=== PATIENT | male | born 1935 | race Caucasian/White ===

== ENCOUNTER 2019-01-12 04:29 | Emergency (ER) | payer MEDICARE, OTHER ==
--- NOTE | 2019-01-12 04:58 | ER Document Report ---
ED General - General Stated Complaint: BLOOD PRESSURE PROBLEM Time Seen by Provider: 01/12/19 04:42 Notes: Patient is an 83-year-old male that comes emergency department from by [facility] for chief complaint of elevated blood pressure reading. Patient states he awoke tonight with a sensation of some bleeding in the back of his throat, he spit out a little bit of blood, then the bleeding stopped. He states he decided to check his blood pressure medication because of this, found that it was 190s systolic. He states his blood pressure is very labile, sometimes it is very elevated, sometimes is borderline low. He is on metoprolol, amlodipine, sotalol (hx of atrial flutter), and also Savaysa blood thinner. He does do nasal rinses. Patient denies ever having headache, he denies any chest pain or dizziness, focal numbness or weakness, inability to urinate. He denies any current complaints. TRAVEL OUTSIDE OF THE [place] IN LAST 30 DAYS: No - Related Data Allergies/Adverse Reactions: No Known Allergies Allergy (Unverified 10/06/14 18:09) Past Medical History - General Information source: Patient - Social History Smoking Status: Never Smoker Chew tobacco use (# tins/day): No Frequency of alcohol use: None Drug Abuse: None Lives with: Family Family History: Reviewed & Not Pertinent Patient has suicidal ideation: No Patient has homicidal ideation: No - Past Medical History Cardiac Medical History: Reports: Hx Coronary Artery Disease, Hx Hypercholesterolemia, Hx Hypertension Pulmonary Medical History: Reports: Hx Asthma Renal/ Medical History: Denies: Hx Peritoneal Dialysis Past Surgical History: Reports: Hx Cardiac Surgery - bipass Review of Systems - Review of Systems Constitutional: See HPI EENT: See HPI Cardiovascular: No symptoms reported Respiratory: No symptoms reported Gastrointestinal: No symptoms reported Genitourinary: No symptoms reported Male Genitourinary: No symptoms reported Musculoskeletal: No symptoms reported Skin: No symptoms reported Hematologic/Lymphatic: No symptoms reported Neurological/Psychological: No symptoms reported Physical Exam - Vital signs Vitals: Temp 98.8 F 01/12/19 04:42 - Notes Notes: GENERAL: Alert, interacts well. No acute distress. HEAD: Normocephalic, atraumatic. EYES: Pupils equal, round, and reactive to light. Extraocular movements intact. ENT: Oral mucosa moist, tongue midline. Oropharynx unremarkable. Airway patent. Nares patent, no nasal septal hematoma, TM's intact. NECK: Full range of motion. Supple. Trachea midline. LUNGS: Clear to auscultation bilaterally, no wheezes, rales, or rhonchi. No respiratory distress. HEART: Regular rate and rhythm. No murmur ABDOMEN: Soft, non-tender. Non-distended. Bowel sounds present in all 4 quadrants. GENITOURINARY: Deferred EXTREMITIES: Moves all 4 extremities spontaneously. No edema, normal radial and dorsalis pedis pulses bilaterally. No cyanosis. BACK: no cervical, thoracic, lumbar midline tenderness. No saddle anesthesia, normal distal neurovascular exam. NEUROLOGICAL: Alert and oriented x3. Normal speech. [cranial nerves II through X II grossly intact]. PSYCH: Normal affect, normal mood. SKIN: Warm, dry, normal turgor. No rashes or lesions noted. Course - Re-evaluation Re-evalutation: No bleeding no bleeding noted from the nose, mouth, eyes. Patient also notes this has stopped. No headache, no chest pain, no other complaints. He is hypertensive but not severely here. He is medicated for this. He has no current complaints. He has a normal neurological exam. I did discuss with Dr. García, he does recommend CBC and chemistry for basic evaluation and if this is unremarkable patient can be discharged if he is still asymptomatic. Patient very agreeable with this, family agreeable with this as well. CBC, chemistry unremarkable. On reevaluation patient has no headache, no rebleeding, no other symptoms reported. Requesting to leave. Stable at time of discharge. - Vital Signs Vital signs: Temp Pulse Resp BP Pulse Ox 98.8 F 17 162/87 H 97 01/12/19 04:42 01/12/19 06:01 01/12/19 06:01 01/12/19 06:01 - Laboratory Result Diagrams: 01/12/19 05:10 01/12/19 05:10 Laboratory results interpreted by me: 01/12/19 05:10 RBC 4.25 L Monocytes % 14.7 H Discharge - Discharge Clinical Impression: Elevated blood pressure reading, Bleeding from mouth Condition: Stable Disposition: HOME, SELF-CARE Additional Instructions: Your evaluation and workup did not show any concerning findings at this time. There is no current bleeding in your mouth. I do recommend that you avoid the nasal rinse for the next couple of days. Putting moisturizer such as Vaseline or bacitracin in the nose using finger or Q-tip can help with this as well. Your blood pressure was elevated tonight. I recommend that you record blood pressures in a journal, 2-3 pressures a day, and then take the general to your primary care for additional management of your hypertension. Return for any concerning symptoms including return of bleeding, severe headache, chest pain, or any other concerning or worsening symptoms.
[2019-01-12 05:26] LABS: ABSOLUTE EOSINOPHILS # (AUTO) 0.3 10^3/uL (0.0-0.6); ABSOLUTE LYMPHOCYTES (AUTO) 1.7 10^3/uL (0.5-4.7); ABSOLUTE MONOCYTES (AUTO) 1.1 10^3/uL (0.1-1.4); ABSOLUTE NEUT (AUTO) 4.2 10^3/uL (1.7-8.2); BASOPHILS % (AUTO) 0.6 % (0-2); EOSINOPHILS % (AUTO) 4.3 % (0-6); HEMATOCRIT 40.6 % (37.9-51.0); HEMOGLOBIN 14.2 g/dL (13.5-17.0); MEAN CORPUSCULAR HEMOGLOBIN 33.4 pg (27.0-33.4); MEAN CORPUSCULAR HGB CONC 34.9 g/dL (32.0-36.0); MEAN CORPUSCULAR VOLUME 96 fl (80-97); MONOCYTES % (AUTO) 14.7 % (3-13); PLATELET COUNT 167 10^3/uL (150-450); RED BLOOD COUNT 4.25 10^6/uL (4.35-5.55); RED CELL DISTRIBUTION WIDTH 13.6 % (11.5-14.0); SEGMENTED NEUTROPHILS % (AUTO) 57.4 % (42-78); TOTAL CELLS COUNTED % (AUTO) 100 %; WHITE BLOOD COUNT 7.4 10^3/uL (4.0-10.5)
[2019-01-12 05:36] LABS: ANION GAP 8 (5-19); BLOOD UREA NITROGEN 15 mg/dL (7-20); CALCIUM 9.3 mg/dL (8.4-10.2); CARBON DIOXIDE 26 mmol/L (22-30); CHLORIDE 106 mmol/L (98-107); GLUCOSE 85 mg/dL (75-110); POTASSIUM 3.8 mmol/L (3.6-5.0)
[2019-01-12 06:20] VITALS: BP 162/87
--- NOTE | 2019-01-12 21:03 | EKG REPORT ---
SEVERITY:- BORDERLINE ECG - SINUS RHYTHM PROBABLE LATERAL INFARCT, OLD BORDERLINE T ABNORMALITIES, ANTERIOR LEADS : Confirmed by: Aster Greenberg MD 12-Jan-2019 21:02:15
== END 2019-01-12 06:28 | disposition home or self-care (01) ==
LOC: ER 04:29
DX: I10 Essential (primary) hypertension (principal); Z79.899 Other long term (current) drug therapy; K13.79 Other lesions of oral mucosa; I48.92 Unspecified atrial flutter; Z79.02 Long term (current) use of antithrombotics/antiplatelets; I25.10 Atherosclerotic heart disease of native coronary artery without angina pectoris; J45.909 Unspecified asthma, uncomplicated; Z95.1 Presence of aortocoronary bypass graft
CPT/HCPCS: 36415; 80048; 85025; 93005; 93010; 99284